=== PATIENT | male | born 1975 | race Caucasian/White ===

== ENCOUNTER 2023-09-28 12:32 | Outpatient (REF) | payer MEDICAID, SELFPAY ==
[2023-09-28 14:24] LABS: MANUAL DIFF FLAG NO
[2023-09-28 14:34] LABS: Basophils Absolute Auto 0.1 X10*3/uL (0.0-0.2); Basophils Percent Auto 0.9 % (0-2); Eosinophils Absolute Auto 0.2 X10*3/uL (0.0-0.4); Eosinophils Percent Auto 2.9 % (0-4); Hematocrit 42.7 % (42.0-52.0); Hemoglobin 14.5 g/dl (14.0-18.0); Imm Gran Abs Auto 0.02 X10*3/uL (0.00-0.03); Imm Gran Pct Auto 0.3 % (0.0-0.4); Lymphocytes Absolute Auto 2.5 X10*3/uL (1.2-4.9); Lymphocytes Percent Auto 32.9 % (20-40); Mean Corpuscular Hemoglobin 29.1 pg (27.0-33.0); Mean Corpuscular Volume 85.6 fL (80.0-98.0); Mean Platelet Volume 9.9 fL (9.4-12.4); Monocytes Absolute Auto 0.5 X10*3/uL (0.1-1.2); Monocytes Percent Auto 6.4 % (2-11); Neutrophils Absolute Auto 4.4 x10*3/uL (2.0-8.3); Neutrophils Percent Auto 56.6 % (45-73); Platelet Count 280 X10*3/uL (160-400); Red Blood Count 4.99 X10*6/uL (4.60-5.80); Red Cell Distribution Width 13.1 % (11.0-16.0); White Blood Count 7.7 X10*3/uL (4.8-10.8)
[2023-09-28 14:44] LABS: Estimated Average Glucose 103 mg/dL; Hemoglobin A1c % 5.2 % (<6.0)
[2023-09-28 15:23] LABS: Alanine Aminotransferase 22 U/L (0-40); Albumin Level 4.3 g/dL (3.5-5.0); Alkaline Phosphatase 65 U/L (39-117); Anion Gap 10 (12-20); Aspartate Amino Transferase 15 U/L (5-37); Bilirubin Total 0.4 mg/dL (0.0-1.0); Blood Urea Nitrogen 13 mg/dL (9-16); Calcium 9.4 mg/dL (8.4-10.2); Carbon Dioxide 29 mmol/L (22-29); Chloride 107 mmol/L (96-108); Cholesterol 220 mg/dL (<200); Estimated Glomerular Filt Rate > 60; Glucose Random 86 mg/dL (60-115); HDL Cholesterol 79 mg/dL (>40); LDL Cholesterol Calculated 128 mg/dL (<100); Potassium 4.3 mmol/L (3.3-5.1); Sodium 142 mmol/L (135-145); Total Protein 7.2 g/dL (6.5-8.0); Triglycerides 69 mg/dL (<150)
[2023-09-28 15:41] LABS: TSH reflex Free T4 1.63 uIU/mL (0.32-4.0)
[2023-09-29 07:59] LABS: ~HepC Num1 0.07 S/CO (0.00-0.79); ~Hepatitis C Antibody Nonreactive (Nonreactive)
[2023-10-01 17:04] LABS: HIV RNA PCR Qn Copies Not Detected Copies/mL; HIV RNA PCR Qn Log Copies Not Detected Log cps/mL
== END 2023-09-28 12:33 | disposition home or self-care (01) ==
LOC: HO.CHCLDS 12:32
PROVIDERS: Visit Provider Internal Medicine
DX: I10 Essential (primary) hypertension (principal)
CPT/HCPCS: 36415; 80053; 80061; 82306; 83036; 84443; 85025; 86803; 87536; 87900

== ENCOUNTER 2025-03-22 14:23 | Outpatient (REF) | payer MEDICAID, SELFPAY ==
--- OUTSIDE RECORDS SUMMARY | 2025-03-22 15:00 | XMS_ITS | Encounter Summary ---
Author Organization [employer] Address [address] [facility] 7t [place] [address] Care Team Providers Care Mrp Controller Name Role Phone Tomi Spring MD Primary Care Prov ider Encounter Details Date Type Department Care Team ([facility] st Contact Info) Description 03/22/2025 3:00 PM EDT Telemedicine [facility] MED & PEDS [address] [place] [address] Tomi Spring MD [address] [place] [address] Primary hypertension (Primary Dx) Social History Tobacco Use Types Packs/Day Years Used Date Smoking Tobacco: Every Day Cigarettes Passive Smoke Exposure: Current Smokeless Tobacco: Never Depression Answer Date Recorded Patient Health Questionnaire-9 Score 0 03/22/2025 Patient Health Questionnaire-9 Score 0 03/22/2025 Last PHQ-9: Questionnaire Data Not on file 0 03/22/2025 Housing Stability Answer Date Recorded What is your housing situation today? I have leo lynne 03/22/[address] you li ve. Do you have problems with any of the following? None of the above 03/22/2025 Food Insecurity Answer Date Recorded Within the past 12 months, y ou worried that your food would run out before you got money to buy more: Never True 03/22/2025 Within the past 12 months,th e food you bought just didn't last and you didn't have enough money to get more: Never True Transportation Answer Date Recorded In the past 12 months, has l ack of transportation kept you from medical appts, meetings, work or from getting things needed for daily living? No 03/22/2025 Utilities Answer Date Recorded In the past 12 months, has t he electric, gas, oil or water company threatened to shut off services in your home? No 03/22/2025 Depression Answer Date Recorded Patient Health Questionnaire-2 Score 0 03/22/2025 Internet Access Answer Date Recorded Internet Access Q1 Yes 03/22/2025 Internet Access Q2 Not on file 03/22/2025 Sex and Gender Information Value Date Recorded Sex Assigned at Male 05/26/2022 10:30 AM EDT Legal Sex Male 10:30 AM EDT Gender Identity Male 05/26/2022 10:30 AM EDT Sexual Orientation Lesbian or Arroyo 05/26/2022 10 :30 AM EDT documented as of this encounter Functional Status * Over the past 2 weeks, how often have you been bothered by any of the following problems? Question Answer Date of Assessment Author Patient Health Questionnaire-2 Score 0 02/25 2:28 PM EDT Jojo Oliveira MA * Little interest or pleasure in doing things Answer Date of Assessment Author Not at all 03/22/2025 2:28 PM EDT Sofia Oliveira MA * Feeling down, depressed, or hopeless Answer Date of Assessment Author Not at all 03/22/2025 2:28 PM EDT Sofia Oliveira MA * Trouble falling or staying asleep, or sleeping too much Answer Date of Assessment Author Not at all 03/22/2025 2:28 PM EDT Sofia Oliveira MA * Feeling tired or having little energy Answer Date of Assessment Author Not at all 03/22/2025 2:28 PM EDT Sofia Oliveira MA * Poor appetite or overeating Answer Date of Assessment Author Not at all 03/22/2025 2:28 PM EDT Sofia Oliveira MA * Feeling bad about yourself - or that you are a failure or have let yourself or your family down Answer Date of Assessment Author Not at all 03/22/2025 2:28 PM Sofia Diaz MA * Trouble concentrating on things, such as reading the newspaper or watching television Answer Date of Assessment Author Not at all 03/22/2025 2:28 PM EDT Sofia Oliveira MA * Moving or speaking so slowly that other people could have noticed? Or the opposite - being so fidgety or restless that you have been moving around a lot more than usual. Answer Date of Assessment Author Not at all 03/22/2025 2:28 PM EDT Sofia Oliveira MA * Thoughts that you would be better off or hurting yourself in some way Answer Date of Assessment Author Not at all 03/22/2025 2:28 PM EDT Sofia Oliveira MA * Patient Health Questionnaire-9 Score Answer Date of Assessment Author 0 03/22/2025 2:28 PM EDT Sofia Oliveira MA documented as of this encounter Plan of Treatment Scheduled Orders Name Type Priority Associated Diagnoses Orde r Schedule PSA, Total With Reflex to PSA, Free Lab Routine Primary hypertension Expected: 03/22/2025 (Approximate), Expires: 03/22/2026 Testosterone, Free (Dialysis) And Total, MS Lab Routine Primary hypertension Expected: 03/22/2025 (Approximate), Expires: 03/22/2026 documented as of this encounter Visit Diagnoses Diagnosis Primary hypertension- Primary Unspecified essential hypertension documented in this encounter Additional Health Concerns Assessment Noted Time PHQ-9 Depression Total Score: 0 03/22/20 25 2:28 PM EDT documented as of this encounter Care Teams Mrp Controller Relationship Specialty Start Date End Date Tomi Spring MD [address] [place] [phone] PCP - General Internal Medicine 12/13/19 documented as of this encounter
--- OUTSIDE RECORDS SUMMARY | 2025-03-22 15:27 | XMS_ITS | Clinical Summary ---
Author Organization [employer] Address [address] [facility] 7t [place] [address] Care Team Providers Care Furnace Combustion Tester Name Role Phone Tomi Spring MD Primary Care Prov ider Allergies Active Allergy Reactions Criticality Noted Date Comments Aspirin 03/03/2016 Other reaction(s): anaphalaxis Wound Dressings 08/08/2022 Medications losartan (Cozaar) 50 MG tablet Take 1 tablet (50 mg) by mouth Once per day. 30 tablet 11 04/13/2024 04/13/20 25 Active varenicline (Chantix) 1 MG tabletIndicatio ns:Smoker TAKE 1 TABLET BY MOUTH TWICE A DAY. TAKE WITH FULL GLASS OF WATER. 180 tablet 10/17/2024 Active D3 50 MCG (1999 UT) tabletIndicatio ns:Vitamin D deficiency TAKE 1 TABLET BY MOUTH EVERY DAY IN THE MORNING 90 tablet 3 10/21/2024 Active amLODIPine (Norvasc) 10 MG tablet TAKE 1 TABLET BY MOUTH EVERY DAY IN THE MORNING 90 tablet 1 12/12/2024 Active sildenafil (Viagra) 50 MG tablet Take 1 tablet (50 mg) by mouth if needed each day for erectile dysfunction. 30 tablet 03/22/2025 04/21/20 25 Active Active Problems Problem Noted Date Diagnosed Date Family history of cancer 10/27/2023 Assessment & Plan (10/27/2023 1:53 PM EDT): Patient has multiple family member with multiple types of cancer diagnosed, will refer to genetic for testing Lump on neck 09/07/2023 Assessment & Plan (09/07/2023 1:40 PM EST): Small lump on left sided upper trapezius muscle, will order a ultrasound for characterization, patient feels is causing him headaches, no other nodes/lumps felt on examination. Primary hypertension 08/08/2022 Assessment & Plan (04/13/2024 9:28 AM EDT): Not on target, will increase losartan to 50mg, continue amlodipine 10mg, new labs will be ordered, follow up in 1-2 months Assessment & Plan (10/27/2023 1:52 PM EDT): Not at target, will add losartan, reinforced importance of low sodium diet and exercise (which he refers is doing), keep bp log, target <140/90, follow up in 1 month Assessment & Plan (09/07/2023 1:36 PM EST): Not at target, he refers at home ranges below 140/90, told to keep a bp log for next visit for review, new labs will be ordered Assessment & Plan (11/05/2022 9:31 AM EDT): Controlled, refers ranges from 130-135/70-75, no side effecs from amlodipine reported, reinforced low sodium diet and exercise as tolerated, follow up in 3 months Assessment & Plan (08/08/2022 8:58 AM EST): Controlled, on amlodipine 10mg, no side effects from medication, refers bp at home <140/90, continue current treatment Vitamin D deficiency 08/08/2022 Assessment & Plan (04/13/2024 9:28 AM EDT): On oral replacement, new labs will be ordered Assessment & Plan (11/05/2022 9:32 AM EDT): On vitamin d replacement, orders plced on last visit but not reported, will reorder to be done on next visit Assessment & Plan (08/08/2022 8:58 AM EST): On oral replacement, will order new labs for guidance of therapy Smoker 08/08/2022 Assessment & Plan (04/13/2024 9:28 AM EDT): Will send chantix, Assessment & Plan (11/05/2022 9:33 AM EDT): On chantix, reinforced smoking cessation Assessment & Plan (08/08/2022 8:58 AM EST): Will renew varenicycline, no changes will be made Mixed hyperlipidemia 08/08/2022 Assessment & Plan (04/13/2024 9:29 AM EDT): New labs ordered, he has been adhering to diet, but is not interested in medical therapy for now, will discuss results on next appointment Assessment & Plan (09/07/2023 1:37 PM EST): Will place new labs for guidance of therapy Assessment & Plan (08/08/2022 8:57 AM EST): Will order new labs for guidance of therapy, patient has had reaction to atorvastatin and rosuvastatin Encounters Date Type Department Care Team Description 03/22/2025 3:00 PM EDT Telemedicine [facility] MED & PEDS [address] [place] [address] Tomi Spring MD Primary hypertension (Primary Dx) 03/22/2025 Refill [facility] MED & PEDS [address] [place] [address] Tomi Spring MD 03/22/2025 Travel from Last 3 Months Social History Tobacco Use Types Packs/Day Years Used Date Smoking Tobacco: Every Day Cigarettes Passive Smoke Exposure: Current Smokeless Tobacco: Never Tobacco Cessation:Ready to Q uit: Not Asked; Counseling Given: Not Answered Depression Answer Date Recorded Patient Health Questionnaire-9 [...] or Arroyo 05/26/2022 10 :30 AM EDT Last Filed Vital Signs Vital Sign Reading Time Taken Comments Blood Pressure 150/84 04/13/2024 8:48 AM EDT Pulse 70 09/07/2023 1:20 PM EST Temperature 36.5 C (97.7 F) 09/07/2023 1:20 PM EST Respiratory Rate 20 09/07/2023 1:20 PM EST Oxygen Saturation - - Inhaled Oxygen Concentration - - Weight 81.6 kg (180 lb) 09/07/2023 1:20 PM EST Height 175.3 cm (5' 9 ) 09/07/2023 1:20 PM EST Body Mass Index 26.58 09/07/2023 1:20 PM EST Plan of Treatment Health Maintenance Due Date Last Done Comments CT Colonography 1975 FIT DNA/Cologuard 1975 FIT 1975 FOBT 1975 HIV Screening 1975 Sigmoidoscopy 1975 Family Planning (PISQ) 1990 Pneumococcal Vaccine: 50+ Years (1 of 2 - PCV) 1994 COVID-19 Vaccine (1 - 2023-25 season) 2024 Zoster Vaccines (1 of 2) 2025 Influenza Vaccine (#1) 2025 04/28/2019 Tobacco Screening 04/13/2025 04/13/2024 Alcohol/Substance Use Screening 03/22/2026 03/22/2025 Depression Screening 03/22/2026 03/22/2025, 03/22/20 25 Disability Screening 03/22/2026 03/22/2025 SDOH Screening 03/22/2026 03/22/2025 Colonoscopy 12/25/2026 12/25/2021 Colorectal Cancer Screening 12/25/2026 DTaP/Tdap/Td Vaccines (3 - Td or Tdap) 03/09/2027 03/09/2017, 03/09/2007 Lipid Panel 09/27/2028 09/28/2023, 07/27, 04/18/2022, Additional history exists RSV Patients and Patients Aged 60 years or older (1 - 1-dose 75+ series) 2050 Hepatitis B Vaccines Completed 06/25/2017, 04/30/2017, 03/06/2017 Hepatitis C Screening Completed 09/28/2023 HIB Vaccines Aged Out No longer eligi ble based on patient's age to complete this topic HPV Vaccines Aged Out No longer eligi ble based on patient's age to complete this topic Hepatitis A Vaccines Aged Out No long er eligible based on patient's age to complete this topic IPV Vaccines Aged Out No longer eligi ble based on patient's age to complete this topic Meningococcal B Vaccine Aged Out No l onger eligible based on patient's age to complete this topic Meningococcal Vaccine Aged Out No himanshu naldo eligible based on patient's age to complete this topic RSV under 20 months Aged Out No longe r eligible based on patient's age to complete this topic Rotavirus Vaccines Aged Out No longer eligible based on patient's age to complete this topic Procedures Procedure Name Priority Date/Time Associated Diagnosis Comments HEPATITIS C AB W/REFL TO HCV RNA, QN, PCR Routine 09/28/2023 12:37 PM EST Primary hypertension LIPID PANEL, STANDARD Routine 09/28/2023 12:37 PM EST Primary hypertension HM COLONOSCOPY Routine 12/25/2021 from Last 3 Months or Most Recently Relevant to Health Maintenance Results * Hepatitis C Antibody with Reflex to HCV, RNA, Quantitative, Real-Time PCR (09/28/2023 12:37 PM EST) Hepatitis C Antibody Nonreactive Nonreactive [facility] Comment:Antibodies to HCV no t detected; does not exclude early acuteHCV infection. Blood Venous blood specimen / Unknown 09/28/2023 12:37 PM EST 09/28/2023 2:19 PM EST us Tomi Dean MD LAB BLOOD ORDERABL ES Final Result [facility] [address] [place] [phone] * (ABNORMAL) Lipid Panel, Standard (09/28/2023 12:37 PM EST) Triglycerides 69 <150 mg/dL [facility] Comment:Desirable Triglyceri de: less than 150 mg/dLBorderline High Triglyceride 150-199 mg/dLHigh Triglyceride: 200-499 mg/dLVery High Triglyceride: greater than or equal to 5OO mg/dL Cholesterol 220(H) <200 mg/dL [facility] Comment:Desirable Cholestero l: less than 200 mg/dLBorderline High Cholesterol: 200-239 mg/dLHigh Cholesterol: greater than 239 mg/dL LDL Cholesterol Calculated 128(H) <100 mg/dL [facility] Comment:Desirable LDL: less than 100 mg/dLNear Optimal/Above Optimal LDL: 110- 129 mg/dLBorderline High LDL: 130-159 mg/dLHigh LDL: 160-189 mg/dLVery High LDL: greater than or equal to 190 mg/dL HDL Cholesterol 79 >40 mg/dL [facility] Comment:Desirable HDL: great er than 40 mg/dL Note: This HDL assay may give artificially low results in patients with liver disease. Blood Venous blood specimen / Unknown 09/28/2023 12:37 PM EST 09/28/2023 2:19 PM EST us Tomi Dean MD LAB BLOOD ORDERABL ES Final Result [facility] [address] [place] [phone] [phone] * Colonoscopy (12/25/2021) Colonoscopy Normal Normal Narrative Whitney Chan - 12/25/2021 Colonoscopy order added us Historical Provider HEALTH MAINTENANCE Final Result from Last 3 Months or Most Recently Relevant to Health Maintenance Insurance C3 Care Teams Furnace Combustion Tester Relationship Specialty Start Date End Date Tomi Spring MD [address] [place] [id number] PCP - General Internal Medicine 12/13/19
--- OUTSIDE RECORDS SUMMARY | 2025-03-22 15:27 | XMS_ITS | Encounter Summary ---
Author Organization [employer] Address [address] [facility] 7t [place] [address] Care Team Providers Care Rn Urology Name Role Phone Tomi Spring MD Primary Care Prov ider Encounter Details Date Type Department Care Team (Latest Contact Info) Description 03/22/2025 Travel Social History Tobacco Use Types Packs/Day Years Used Date Smoking Tobacco: Every Day Cigarettes Passive Smoke Exposure: Current Smokeless Tobacco: Never Depression Answer Date Recorded Patient Health Questionnaire-9 Score 0 03/22/2025 Patient Health Questionnaire-9 Score 0 03/22/2025 Last PHQ-9: Questionnaire Data Not on file 0 03/22/2025 Housing Stability Answer Date Recorded What is your housing situation today? I have leo guera 03/22/[address] you li [...] PM EDT Sofia Oliveira MA * Trouble concentrating on things, such [...] as of this encounter Plan of Treatment Not on file documented as of this encounter Visit Diagnoses Not on filedocumented in this encounter Additional Health Concerns Assessment Noted Time PHQ-9 Depression Total Score: 0 03/22/20 25 2:28 PM EDT documented as of this encounter Care Teams Rn Urology Relationship Specialty Start Date End Date Tomi Spring MD [address] [place] [phone] PCP - General Internal Medicine 12/13/19 documented as of this encounter
--- OUTSIDE RECORDS SUMMARY | 2025-03-22 15:27 | XMS_ITS | Encounter Summary ---
Author Organization [employer] Address [address] [facility] 7t [place] [address] Care Team Providers Care Machine Grinder Name Role Phone Tomi Spring MD Primary Care Prov ider Encounter Details Date Type Department Care Team ([facility] st Contact Info) Description 09/29/2023 Orders Only [facility] MED & PEDS [address] [place] [address] Tomi Spring MD [address] [place] [address] Social History Tobacco Use Types Packs/Day Years Used Date Smoking Tobacco: Every Day Cigarettes Passive Smoke Exposure: Current Smokeless Tobacco: Never Depression Answer Date Recorded Patient Health Questionnaire-9 Score 0 09/07/2023 Patient Health Questionnaire-9 Score 0 09/07/2023 Last PHQ-9: Questionnaire Data Not on file 0 09/07/2023 Housing Stability Answer Date Recorded What is your housing situation today? I have leo lynne 09/07/[address] you li ve. Do you have problems with any of the following? None of the above 09/07/2023 Food Insecurity Answer Date Recorded Within the past 12 months, y ou worried that your food would run out before you got money to buy more: Never True 09/07/2023 Within the past 12 months,th e food you bought just didn't last and you didn't have enough money to get more: Never True 06/2024 Transportation Answer Date Recorded In the past 12 months, has l ack of transportation kept you from medical appts, meetings, work or from getting things needed for daily living? No 09/07/2023 Utilities Answer Date Recorded In the past 12 months, has t he electric, gas, oil or water company threatened to shut off services in your home? No 09/07/2023 Depression Answer Date Recorded Patient Health Questionnaire-2 Score 0 09/07/2023 Sex and Gender Information Value Date Recorded Sex Assigned at Male 05/26/2022 10:30 AM EDT Legal Sex Male 10:30 AM EDT Gender Identity Male 05/26/2022 10:30 AM EDT Sexual Orientation Lesbian or Arroyo 05/26/2022 10 :30 AM EDT documented as of this encounter Plan of Treatment Not on file documented as of this encounter Visit Diagnoses Not on filedocumented in this encounter Additional Health Concerns Assessment Noted Time PHQ-9 Depression Total Score: 0 09/07/19 24 1:21 PM EST documented as of this encounter Care Teams Machine Grinder Relationship Specialty Start Date End Date Tomi Spring MD [address] [place] [phone] PCP - General Internal Medicine 12/13/19 documented as of this encounter
[2025-03-22 18:39] LABS: Alanine Aminotransferase 17 U/L (0-40); Albumin Level 4.1 g/dL (3.5-5.0); Alkaline Phosphatase 45 U/L (39-117); Anion Gap 10 (12-20); Aspartate Amino Transferase 24 U/L (5-37); Blood Urea Nitrogen 10 mg/dL (9-16); Calcium 8.7 mg/dL (8.4-10.2); Carbon Dioxide 25 mmol/L (22-29); Chloride 106 mmol/L (96-108); Cholesterol 209 mg/dL (<200); Estimated Glomerular Filt Rate > 60; HDL Cholesterol 76 mg/dL (>40); Potassium 4.2 mmol/L (3.3-5.1); Sodium 137 mmol/L (135-145); Total Protein 6.5 g/dL (6.5-8.0); Triglycerides 120 mg/dL (<150)
== END 2025-03-22 14:24 | disposition home or self-care (01) ==
LOC: HO.CHCLDS 14:23
PROVIDERS: Visit Provider Internal Medicine
DX: I10 Essential (primary) hypertension (principal)
CPT/HCPCS: 36415; 80053; 80061; 82306

== ENCOUNTER 2025-03-23 08:03 | Outpatient (REF) | payer MEDICAID, SELFPAY ==
--- OUTSIDE RECORDS SUMMARY | 2025-03-22 15:00 | XMS_ITS | Encounter Summary ---
Author Organization [employer] Address [address] [facility] 7t [place] [address] Care Team Providers Care Blasting Gang Miner Name Role Phone Tomi Spring MD Primary Care Prov ider Encounter Details Date Type Department Care Team ([facility] st Contact Info) Description 03/22/2025 3:00 PM EDT Telemedicine [facility] MED & PEDS [address] [place] [address] Tomi Spring MD [address] [place] [address] Primary hypertension (Primary Dx) Social History Tobacco [...] documented as of this encounter Care Teams Blasting Gang Miner Relationship Specialty Start Date End Date Tomi Spring MD [address] [place] [phone] PCP - General Internal Medicine 12/13/19 documented as of this encounter
--- OUTSIDE RECORDS SUMMARY | 2025-03-23 08:19 | XMS_ITS | Encounter Summary ---
Author Organization [employer] Address [address] [facility] 7t [place] [address] Care Team Providers Care Wildlife Ecologist Name Role Phone Tomi Spring MD Primary [...] documented as of this encounter Care Teams Wildlife Ecologist Relationship Specialty Start Date End Date Tomi Spring MD [address] [place] [phone] PCP - General Internal Medicine 12/13/19 documented as of this encounter
--- OUTSIDE RECORDS SUMMARY | 2025-03-23 08:19 | XMS_ITS | Encounter Summary ---
Author Organization [employer] Address [address] [facility] 7t [place] [address] Care Team Providers Care Rn Peritoneal Dialysis Name Role Phone Tomi Spring MD Primary Care Prov ider Encounter Details Date Type Department Care Team ([facility] st Contact Info) Description 09/29/2023 Orders Only [facility] MED & PEDS [address] [place] [address] Tomi Spring MD [address] [place] [address] Social History Tobacco Use Types Packs/Day Years [...] as of this encounter Care Teams Rn Peritoneal Dialysis Relationship Specialty Start Date End Date Tomi Spring MD [address] [place] [phone] PCP - General Internal Medicine 12/13/19 documented as of this encounter
--- OUTSIDE RECORDS SUMMARY | 2025-03-23 08:20 | XMS_ITS | Clinical Summary ---
Author Organization [employer] Address [address] [facility] [address] [facility] [address] [place] [address] Care Team Providers Care Hot Plate Plywood Press Offbearer Name Role Phone Tomi Spring MD Primary [...] Team Description 03/22/2025 3:00 PM EDT Telemedicine [facility] [address] [place] [address] Tomi Spring MD Primary hypertension (Primary Dx) 03/22/2025 Refill [facility] [address] [place] [address] Tomi Spring MD 03/22/2025 Travel from Last [...] or Tdap) 03/09/2027 03/09/2017, 03/09/2007 Lipid Panel 03/22/2030 03/22/2025, 0310/2023, 08/08/2022, Additional history exists RSV Patients and Patients [...] Procedure Name Priority Date/Time Associated Diagnosis Comments VITAMIN D,25-OH,TOTAL,IA Routine 03/22/2025 2:24 PM EDT Primary hypertension LIPID PANEL, STANDARD Routine 03/22/2025 2:24 PM EDT Primary hypertension COMPREHENSIVE METABOLIC PANEL Routine 03/22/2025 2:24 PM EDT Primary hypertension HEPATITIS C AB W/REFL TO HCV RNA, QN, PCR Routine 09/28/2023 12:37 PM EST Primary hypertension HM COLONOSCOPY Routine 12/25/2021 from Last 3 Months or Most Recently Relevant to Health Maintenance Results * Vitamin D, 25-Hydroxy, Total, Immunoassay (03/22/2025 2:24 PM EDT) Vitamin D 25-OH Total 39.3 >30 ng/mL [facility] Comment: Health Based Reference Values*< 20 ng/mL [id number] ng/mL Insufficient> 30 ng/mL Sufficient*Cathleen ADAME. N Engl J Med. 2007;357:266-280There is no well-established upper level of normal vitamin Dlevels. Some laboratories use 50 ng/mL as an upper limit ofnormal. However, toxicity is patient-dependent and may occurat any level. Careful correlation with the patient'spresentation is necessary and, if there is concern forvitamin D toxicity, treatment should be consideredirrespective of the serum level.Care must be taken in interpreting Vitamin D results fromdifferent laboratories and methodologies. Published datademonstrated that results from patients undergoinghemodialysis may show a negative bias when tested withvarious automated 25-OH vitamin D assays when compared toLC-MS/MS.When testing samples from patients whose predominant form ofVitamin D is Vitamin D2, such as patients receiving VitaminD2 supplementation, results that are subtherapeutic shouldbe confirmed with another method such as LC-MS/MS. Blood Venous blood specimen / Unknown 03/22/2025 2:24 PM EDT 03/22/2025 5:51 PM EDT us Tomi Dean MD LAB BLOOD ORDERABL ES Final Result [facility] [address] [place] [phone] * (ABNORMAL) Lipid Panel, Standard (03/22/2025 2:24 PM EDT) Triglycerides 120 <150 mg/dL [facility] Comment:Desirable Triglyceri de: less than 150 mg/dLBorderline High Triglyceride 150-199 mg/dLHigh Triglyceride: 200-499 mg/dLVery High Triglyceride: greater than or equal to 5OO mg/dL Cholesterol 209(H) <200 mg/dL [facility] Comment:Desirable Cholestero l: less than 200 mg/dLBorderline High Cholesterol: 200-239 mg/dLHigh Cholesterol: greater than 239 mg/dL LDL Cholesterol Calculated 109(H) <100 mg/dL [facility] Comment:Desirable LDL: less than 100 mg/dLNear Optimal/Above Optimal LDL: 110- 129 mg/dLBorderline High LDL: 130-159 mg/dLHigh LDL: 160-189 mg/dLVery High LDL: greater than or equal to 190 mg/dL HDL Cholesterol 76 >40 mg/dL [facility] Comment:Desirable HDL: great er than 40 mg/dL Note: This HDL assay may give artificially low results in patients with liver disease. Blood Venous blood specimen / Unknown 03/22/2025 2:24 PM EDT 03/22/2025 5:51 PM EDT us Tomi Dean MD LAB BLOOD ORDERABL ES Final Result [facility] [address] [place] [phone] * (ABNORMAL) Comprehensive Metabolic Panel (03/22/2025 2:24 PM EDT) Sodium 137 135 - 145 mmol/L [facility] Potassium 4.2 3.3 - 5.1 mmol/L [facility] Chloride 106 96 - 108 mmol/L [facility] Carbon Dioxide 25 22 - 29 mmol/L [facility] Anion Gap 10(L) 12 - 20 [facility] Urea Nitrogen (BUN) 10 9 - 16 mg/dL [facility] Creatinine, Serum 0.88 0.5 - 1.4 mg/dL [facility] Estimated Glomerular Filt Rate >60 [facility] Comment:Chronic Kidney Disea se: Estimated GFR < 60 mL/min/[id number] Kidney Disease: Estimated GFR < 15 mL/min/1.73m2 Glucose 95 60 - 115 mg/dL [facility] Calcium 8.7 8.4 - 10.2 mg/dL [facility] Bilirubin, Total 0.4 0.0 - 1.0 mg/dL [facility] Aspartate Amino Transferase 24 5 - 37 U/L [facility] Alanine Aminotransferase 17 0 - 40 U/L [facility] Total Protein 6.5 6.5 - 8.0 g/dL [facility] Albumin Level 4.1 3.5 - 5.0 g/dL [facility] Alkaline Phosphatase 45 39 - 117 U/L [facility] Blood Venous blood specimen / Unknown 03/22/2025 2:24 PM EDT 03/22/2025 5:51 PM EDT Tomi Dean MD LAB BLOOD ORDERABL ES Final Result Performing Organization Address [facility] Co de Phone Number [facility] [address] [place] [phone] * Hepatitis C Antibody with Reflex to HCV, RNA, Quantitative, Real-Time PCR (09/28/2023 12:37 PM EST) Hepatitis C Antibody Nonreactive Nonreactive [facility] Comment:Antibodies to HCV no t detected; does not exclude early acuteHCV infection. Blood Venous blood specimen / Unknown 09/28/2023 12:37 PM EST 09/28/2023 2:19 PM EST us Tomi Dean MD LAB BLOOD ORDERABL ES Final Result Performing Organization Address City/State/[facility] Co de Phone Number [facility] [address] [place] [phone] * Colonoscopy (12/25/2021) Colonoscopy Normal Normal Whitney Danielson - 12/25/2021 Colonoscopy order added us Historical Provider HEALTH MAINTENANCE Final Result from Last 3 Months or Most Recently Relevant to Health Maintenance Insurance [employer] Care Teams Hot Plate [employer]wood Press Offbearer Relationship Specialty Start Date End Date Tomi Spring MD [address] [place] [phone] PCP - General Internal Medicine 12/13/19
--- OUTSIDE RECORDS SUMMARY | 2025-03-23 08:20 | XMS_ITS | Encounter Summary ---
Author Organization [employer] Address [address] [facility] [address] [place] [address] Care Team Providers Care Cash Shortage Investigator Name Role Phone Tomi Spring MD Primary Care Prov ider Reason for Visit * Reason Comments Med Change Request Encounter Details Date Type Department Care Team ([facility] Contact Info) Description 03/22/2025 Refill [facility] [address] [place] [address] Tomi Spring MD [address] [place] [address] Social History Tobacco Use Types Packs/Day Years [...] Author Not at all 03/22/2025 2:28 PM MIKAYLAT Sofia Oliveira MA * Poor appetite or overeating Answer Date of Assessment Author Not at all 03/22/2025 2:28 PM MIKAYLAT Sofia Oliveira MA * Feeling bad about [...] documented as of this encounter Care Teams Cash Shortage Investigator Relationship Specialty Start Date End Date Tomi Spring MD [address] [place] [phone] PCP - General Internal Medicine 12/13/19 documented as of this encounter
[2025-03-23 16:24] LABS: PSA,Total (Free>4and<10) 1.64 ng/mL (0.00-4.00)
[2025-03-27 17:42] LABS: Testosterone, Free 85.4 pg/mL (35.0-155.0)
== END 2025-03-23 08:04 | disposition home or self-care (01) ==
LOC: HO.CHCLDS 08:03
PROVIDERS: Visit Provider Internal Medicine
DX: I10 Essential (primary) hypertension (principal); Z12.5 Encounter for screening for malignant neoplasm of prostate
CPT/HCPCS: 36415; 84153; 84402; 84403